=== PATIENT | male | born 1975 | race Hispanic/Latino ===

== ENCOUNTER 2017-04-20 16:04 | Emergency (ER) | payer OTHER ==
[2017-04-20 16:15] VITALS: BP 129/68; PULSE 86; RESP 16; TEMP 98.1; O2SAT 100
[2017-04-20] MEDS ORDERED: Sodium Chloride 0.9% 1,000 ML IV STA (16:59)
--- NOTE | 2017-04-20 17:25 | ED PDOC ---
HPI:Nausea, Vomiting, Diarrhea Time Seen by Provider: 04/20/17 16:08 Chief Complaint (Nursing): GI Problem Chief Complaint (Provider): GI Problem History Per: Patient History/Exam Limitations: no limitations Onset/Duration Of Symptoms: Days (x2) Current Symptoms Are (Timing): Still Present Additional Complaint(s): Jostin Thakkar is a 41 year old male with previous medical history of colitis, sent by PCP for dehydration, who presents to the emergency department with a complaint of nausea associated with vomiting, diarrhea and headaches ongoing for 2 days. Denied fever, chills, chest pain, shortness of breath and abdominal pain. Patient stated he has similar episodes every once in a while for the last 1-2 years. He was also given Reglan injection, in which patient stated he feels better in ED and had CT scan today at PCP's office. Of note, patient is able to tolerate food and liquids. PMD: Andrew Abrams MD Past Medical History Reviewed: Historical Data, Nursing Documentation, Vital Signs Vital Signs: Last Vital Signs Temp 98.1 F 04/20/17 16:10 Pulse 86 04/20/17 16:10 Resp 16 04/20/17 16:10 BP 129/68 04/20/17 16:10 Pulse Ox 100 04/20/17 16:10 - Medical History PMH: Crohn's Disease Other PMH: colitis - Surgical History Surgical History: No Surg Hx - Family History Family History: States: Unknown Family Hx - Social History Current smoker - smoking cessation education provided: No Ex-Smoker (has not smoked in the last 12 months): No Alcohol: None Drugs: Denies - Immunization History Hx Tetanus Toxoid Vaccination: No Hx Influenza Vaccination: No Hx Pneumococcal Vaccination: No - Home Medications Home Medications: Ambulatory Orders Medication Instructions Recorded Dextroamphetamine/Amphetamine 5 mg PO 1600 10/13/16 [Adderall 10 mg Tablet] Dextroamphetamine/Amphetamine 15 mg PO 1200 10/13/16 [Adderall 10 mg Tablet] Dextroamphetamine/Amphetamine 20 mg PO QAM 10/13/16 [Adderall 10 mg Tablet] Dicyclomine [Bentyl] 20 mg PO QID PRN #10 tab 10/13/16 Multivitamin [Multi-Vitamin Daily] 1 tab PO DAILY 10/13/16 Ondansetron ODT [Zofran ODT] 4 mg PO Q8H PRN #20 odt 10/13/16 Venlafaxine [Effexor XR] 37.5 mg PO DAILY 10/13/16 Venlafaxine [Effexor XR] 75 mg PO DAILY 10/13/16 - Allergies Allergies/Adverse Reactions: Allergies Allergy/AdvReac Type Severity Reaction Status Date / Time No Known Allergies Allergy Verified 10/13/16 17:45 Review of Systems ROS Statement: Except As Marked, All Systems Reviewed And Found Negative Constitutional: Negative for: Fever, Chills Cardiovascular: Negative for: Chest Pain Respiratory: Negative for: Shortness of Breath Gastrointestinal: Positive for: Nausea, Vomiting, Diarrhea. Negative for: Abdominal Pain Neurological: Positive for: Headache Physical Exam - Reviewed Nursing Documentation Reviewed: Yes Vital Signs Reviewed: Yes - Physical Exam Appears: Positive for: Well, Non-toxic, No Acute Distress Head Exam: Positive for: ATRAUMATIC, NORMAL INSPECTION, NORMOCEPHALIC Eye Exam: Positive for: Normal appearance, EOMI, PERRL. Negative for: Nystagmus ENT: Positive for: Normal ENT Inspection Neck: Positive for: Normal, Painless ROM, Supple. Negative for: Limited ROM Cardiovascular/Chest: Positive for: Regular Rate, Rhythm. Negative for: Chest Non Tender Respiratory: Positive for: Normal Breath Sounds. Negative for: Decreased Breath Sounds, Respiratory Distress Gastrointestinal/Abdominal: Positive for: Normal Exam, Bowel Sounds, Soft. Negative for: Tenderness Neurologic/Psych: Positive for: Alert, Oriented - Laboratory Results Result Diagrams: 04/20/17 17:32 04/20/17 17:32 - ECG O2 Sat by Pulse Oximetry: 100 (RA) Pulse Ox Interpretation: Normal - Progress Re-evaluation Time: 18:17 Condition: Re-examined, Improved Medical Decision Making Medical Decision Making: Initial Impression: Vomiting; diarrhea; associated headaches Initial Plan: * BMP * Drug screen, urine * CBC * Tylenol 650mg PO * Toradol 30mg IVP * NS 1,000ml IV per 1,00mls/hr Time: 1610 --CT head 04/20/17 (ordered by PCP) FINDINGS: HEMORRHAGE: No intracranial hemorrhage. BRAIN: Corticomedullary density remains well differentiated and there is no mass effect or pattern of edema. Posterior fossa contents appear unremarkable as well as the brainstem. No mass effect is appreciated in the midline brain and appears normal grossly. The craniocervical junction appears intact. VENTRICLES: Unremarkable. No hydrocephalus. CALVARIUM: Unremarkable. PARANASAL SINUSES: Unremarkable as visualized. No significant inflammatory changes. MASTOID AIR CELLS: Unremarkable as visualized. No inflammatory changes. OTHER FINDINGS: None. IMPRESSION: Normal unenhanced CT of the Head. No signal interval change compared to prior head CT dated 10/13/2016. Scribe Attestation: Documented by Argelia Eason, acting as a scribe for Kenia Mejía MD. Provider Scribe Attestation: All medical record entries made by the Scribe were at my direction and personally dictated by me. I have reviewed the chart and agree that the record accurately reflects my personal performance of the history, physical exam, medical decision making, and the department course for this patient. I have also personally directed, reviewed, and agree with the discharge instructions and disposition. Disposition - Clinical Impression Clinical Impression: Vomiting and diarrhea, Headache - Patient ED Disposition Is Patient to be Admitted: No Doctor Will See Patient In The: Office Counseled Patient/Family Regarding: Studies Performed, Diagnosis, Need For Followup - Disposition Referrals: Andrew Abrams MD [Staff Provider] - Disposition: Routine/Home Disposition Time: 18:17 Condition: GOOD Additional Instructions: Mr Altamirano, Thank you for letting us to take care of you.l Take your medications as instructed. Return for worsening. Follow up with your PCP in 2-3 days. Instructions: Gastroenteritis (ED), General Headache (ED)
[2017-04-20 17:39] LABS: BASO % 0.1 % (0.0-2.0); EOS % 0.3 % (0.0-4.0); HEMATOCRIT 42.7 % (35.0-51.0); LYMPH # 0.4 K/uL (1.0-4.3); LYMPH % 9.6 % (20.0-40.0); MEAN CELL VOLUME 83.7 fl (80.0-94.0); MEAN CORPUSCULAR HEMOGLOBIN 27.6 pg (27.0-31.0); MEAN PLATELET VOLUME 8.1 fl (7.2-11.7); MONO # 0.2 K/uL (0.0-0.8); MONO % 5.7 % (0.0-10.0); NEUT # 3.6 K/uL (1.8-7.0); NEUT % 84.3 % (50.0-75.0); NRBC % 0.3 % (0.0-0.0); PLATELET COUNT 179 K/uL (130-400); RED CELL DISTRIBUTION WIDTH 14.1 % (11.5-14.5); WHITE BLOOD COUNT 4.3 K/uL (4.8-10.8)
[2017-04-20 17:47] LABS: BLOOD UREA NITROGEN 19 mg/dl (9-20); CALCIUM 9.4 mg/dL (8.4-10.2); CARBON DIOXIDE 29 mmol/L (22-30); CHLORIDE 99 mmol/L (98-107); GFR AFRICAN-AMERICAN > 60; GLUCOSE,RANDOM 116 mg/dL (75-110); POTASSIUM 4.6 MMOL/L (3.6-5.0); SODIUM 140 mmol/l (132-148)
[2017-04-20 18:18] LABS: NEUTROPHIL 78 % (42-75); TOTAL CELLS COUNTED 100
== END 2017-04-20 18:35 | disposition home or self-care (01) ==
LOC: H.ER 16:04
DX: R11.2 Nausea with vomiting, unspecified (principal); R19.7 Diarrhea, unspecified; R51 Headache; K50.90 Crohn's disease, unspecified, without complications; Z87.891 Personal history of nicotine dependence
CPT/HCPCS: 80048; 80324; 80345; 80346; 80349; 80353; 80358; 80361; 83992; 85025; 96361; 96374; 99282; J1885; J7040